=== PATIENT | male | born 1965 | race Caucasian/White ===

== ENCOUNTER 2022-11-24 19:56 | Emergency (ER) | payer OTHER ==
[~2022-11-24] VITALS: Ht 172.7 cm; Wt 81.6 kg
[2022-11-24 20:14] VITALS: BP 162/108
--- NOTE | 2022-11-24 20:14 | NUR ---
DINESH FROM [facility]. EMESIS X1. ADMITS TO E[facility] TODAY. DENIES NAUSEA. PT A/OX4. TOLERATING R/A WELL WITH NO RESP DISTRESS.
[2022-11-24] MEDS ORDERED: ONDANSETRON 4 MG TAB.RAPDIS ONE (21:00)
[2022-11-24] MEDS ORDERED: ONDANSETRON 4 MG TAB.RAPDIS SL ONE (21:00)
[2022-11-24] MEDS ORDERED: CHLORDIAZEPOXIDE HCL 25 MG CAPSULE ONE (21:00)
[2022-11-24] MEDS ORDERED: CHLORDIAZEPOXIDE HCL 25 MG CAPSULE PO ONE (21:00)
[2022-11-24] MEDS ORDERED: CHLO25CA22 PO (21:10)
[2022-11-24] MEDS ORDERED: ONDA4TAB5 PO (21:13)
--- NOTE | 2022-11-24 21:18 | NUR ---
TEENA GAGNON FROM [facility] FOR D/C ETA [id number]
--- NOTE | 2022-11-24 21:24 | NUR ---
Patient discharged to [facility] in stable condition. Written and verbal after care instructions given. Patient verbalizes understanding of instruction.
== END 2022-11-24 23:37 | disposition home or self-care (01) ==
LOC: ER 20:00
DX: F10.139 Alcohol abuse with withdrawal, unspecified (principal); Z79.899 Other long term (current) drug therapy; Y90.9 Presence of alcohol in blood, level not specified
CPT/HCPCS: 99283; Q0162